=== PATIENT | female | born 1970 | race Two or more races ===

== ENCOUNTER 2022-05-06 18:00 | Day surgery (SDC) | payer SELFPAY ==
[2022-05-03 11:21] VITALS: BMI 26.6
[2022-05-06] MEDS: CEFAZOLIN 1 GM in DEXTROSE 5%-WATER - 50 ML IVPB SCH ×2 (16:27→21:30)
[2022-05-06] MEDS: DOCUSATE SODIUM 100 MG CAPSULE (FP) PO PRN (16:52)
[~2022-05-06 18:00] MED LIST: BACITRACIN ZINC 15 GM TUBE TOPICAL OINTMENT ONE; DEXAMETHASONE SOD PHOSPHATE 4 MG/1 ML VIAL ONE; EPINEPHrine/PF 1 MG/1 ML (1:1,000) AMPULE ONE; FENTANYL CITRATE/PF 50 MCG/ML VIAL ONE; GLYCOPYRROLATE 0.2 MG/1 ML VIAL ONE; HYDROmorphone HCl 2 MG/ML VIAL IVPB PRN; LACTATED RINGERS SOLUTION 1,000 ML IV SCH; LIDOCAINE HCL 1%, 10 MG/ML (20ML VIAL) ONE; LIDOCAINE HCL/PF 2% SDV 5ML VIAL ONE; MIDAZOLAM HCL 2 MG/2 ML SINGLE DOSE VIAL ONE; NEOSTIGMINE METHYLSULFATE 0.5 MG/1 ML - 10 ML MDV ONE; ONDANSETRON 4 MG/2 ML VIAL IVPUSH PRN; ONDANSETRON 4 MG/2 ML VIAL ONE; PROMETHAZINE HCL 25 MG/1 ML VIAL IVPB PRN; PROPOFOL 40 ML ONE; ROCURONIUM BROMIDE 50 MG/5 ML SYRINGE ONE; SODIUM CHLORIDE 0.9% P/F 10 ML VIAL IJ ONE; ceFAZolin SODIUM 1 GM VIAL ONE; diazePAM 2 MG TABLET PO PRN; oxyCODONE HCL 5 MG TABLET PO PRN
[2022-05-07 00:02] VITALS: RESP 18
[2022-05-07] MEDS: CEFAZOLIN 1 GM in DEXTROSE 5%-WATER - 50 ML IVPB SCH ×2 (03:20→09:18)
[2022-05-07] MEDS: ACETAMINOPHEN 325 MG TABLET (FP) PO PRN ×2 (05:48→09:20)
[2022-05-07 06:41] VITALS: PULSE 91
[2022-05-07] MEDS: DOCUSATE SODIUM 100 MG CAPSULE (FP) PO PRN (09:20)
[2022-05-07] MEDS ORDERED: ENOXAPARIN NA (PORCINE) 40 MG/0.4 ML DISP.SYRIN SQ ONE (12:44)
[2022-05-07 14:42] VITALS: BP 117/58; TEMP 97.7
== END 2022-05-07 15:13 | disposition home or self-care (01) ==
LOC: FM/S 18:00 → FASUSAT 18:00
PROVIDERS: ATTEND Surgery
CPT/HCPCS: 81025; 94760